=== PATIENT | female | born 1955 | race Caucasian/White ===

== ENCOUNTER → 2018-12-07 | Outpatient (CLI) | payer OTHER ==
--- NOTE | 2018-12-09 10:06 | PATH ---
[facility] [place] [address] PATHOLOGY RPT PROCEDURE Name: NED RICO Room #: REG [facility].#: [id number] ������������������ Admission: 12/07/18 ������������������ Date of : 55 Discharge: Report #: [id number] Path Case #: [id number] [facility] Accession Number: [id number] . 01 Material submitted: . PART A: breast - RIGHT BREAST CENTRAL CALCIFICATIONS. Modifiers: right, central PART B: breast - RIGHT BREAST 3:00 2CM. Modifiers: right PART C: breast - RIGHT BREAST 3:00 6CM. Modifiers: right . 01 Clinical history: . Right breast calcifications and distortion/mass . 02 Diagnosis: A. Breast, central, stereotactic needle core biopsy: - PROLIFERATIVE FIBROCYSTIC CHANGES ASSOCIATED WITH COLUMNAR CELL HYPERPLASIA, ADENOSIS, AND FOCAL ATYPICAL LOBULAR HYPERPLASIA. - Negative for carcinoma in situ or invasive carcinoma. - Calcifications identified in association with proliferative fibrocystic changes including columnar cell change. . B. Breast, right, 3:00, 2 cm from nipple, needle core biopsy: - INVASIVE DUCTAL ADENOCARCINOMA, JOSE G GRADE I MEASURING 1.1 CM IN GREATEST DIMENSION IN A SINGLE CORE IN CONTIGUOUS LENGTH. - DUCTAL CARCINOMA IN SITU, CRIBRIFORM TYPE AND INTERMEDIATE NUCLEAR GRADE PRESENT IN THE BACKGROUND. - MICROCALCIFICATIONS PRESENT IN ASSOCIATION WITH INVASIVE CARCINOMA. . C. Breast, right breast 3:00, 6 cm from nipple, needle core biopsy: - INVASIVE LOBULAR CARCINOMA, JOSE G GRADE I MEASURING 0.3 CM (3 MM) IN GREATEST DIMENSION IN CONTIGUOUS LENGTH IN A SINGLE CORE. (IUV:kun; 12/08/2018) QMS/12/08/2018 . 02 Comment: Part B: Specimen type: Needle core biopsy Tumor site: Right Breast 3:00 2 cm Tumor quantitation: 1.1 cm Histologic type: Invasive Ductal Carcinoma Histologic grade: [place] Grade 1 Tubules, nuclei and mitoses: 2, 1 and 1 respectively LVSI: Not identified Microcalcifications: Present Markers: ER, [place], Her2/meghan and Ki-67 Block: [place]2 [place] [address] PATHOLOGY RPT PROCEDURE Name: NED RICO Room #: REG LISANDRO Metcalf#: [id number] ������������������ Admission: 12/07/18 ������������������ Date of : 55 Discharge: Report #: [id number] Path Case #: [id number] Part C: Specimen type: Needle core biopsy Tumor site: Right Breast 3:00 6 cm Tumor quantitation: 0.3 cm Histologic type: Invasive Lobular Carcinoma Histologic grade: [place] Grade 1 Tubules, nuclei and mitoses: 2, 1 and 1 respectively LVSI: Not identified Microcalcifications: Not identified Markers: ER, OK, Her2/meghan and Ki-67 Block: C3 A properly controlled ECadherin immunohistochemical stain is performed on block C1 and it shows no reactivity present supporting the diagnosis rendered. Internal controls reacted appropriately. (IUV: 12/08/2018) . Co-review: Search Engineer slides were co-reviewed by Dr. Angeles Sharma. . Findings of this case are telephoned to Ms. Abarca in our breast center at 11:30 a.m. on 12/08/2018. . 02 Electronically signed: . Fabiola Andres MD, Pathologist NPI- [id number] . 01 Gross description: . A. The specimen is received in formalin, labeled "Ned Rico". No source is listed on the container. The source is listed on the requisition as, "right central". Received are multiple needle cores of fibrofatty tissue measuring 3.4 x 3.2 x 0.6 and meters in aggregate dimensions. Also received within the specimen container is a plastic cassette containing a single needle core of fibrofatty tissue measuring 3.2 cm in length by 0.5 cm in diameter. The suspect tissue is transferred cassette A1. Remaining tissue submitted in cassettes A2 and A3. The cold ischemic time is 5 minutes. The total formalin fixation time is 12 hours. . B. The specimen is received in formalin, labeled "Ned Rico, right breast 3:00 2 cm". Received are multiple needle cores of fibrofatty tissue measuring 3.4 x 2.8 x 0.7 cm in aggregate dimensions. The specimen is submitted entirely in cassettes B1 through B3. The cold ischemic time is 5 minutes. The total formalin fixation time is 11 hours. . C. The specimen is received in formalin, labeled "Ned Rico, right breast 3:00 6 cm". Received are multiple needle cores of fibrofatty tissue measuring 3.2 x 2.6 x 0.4 cm in aggregate dimensions. The specimen is submitted entirely in cassettes C1 through C3. The cold ischemic time is 5 minutes. The total formalin fixation time is 11 hours. [facility] [address] [place] [address] PATHOLOGY RPT PROCEDURE Name: NED RICO Room #: REG [facility]..#: [id number] ������������������ Admission: 12/07/18 ������������������ Date of : 55 Discharge: Report #: [id number] Path Case #: [id number] (CAA; 12/07/2018) QAC/QAC . 02 Pathologist provided ICD-10: C50.911, D05.11, N60.11, N60.21, N60.92 . 02 CPT . 352175, 008439, 441886, Z11432 Specimen Comment: A courtesy copy of this report has been sent to Specimen Comment: [phone], . Specimen Comment: Report sent to / DR HARRINGTON Performed at: 01 [facility] [address], [place], [place] [id number] MD Gideon Frecnh MD Phone: [phone] Performed at: [address] [facility] [address] [id number] MD Fabiola Andres MD Phone: [phone]
== END | disposition home or self-care (01) ==
LOC: RADSTEREO 01:53 → ULTRA 01:53 → RAD 12-10 09:29 → RADSTEREO 12-10 10:25
DX: C50.911 Malignant neoplasm of unspecified site of right female breast (principal); N60.11 Diffuse cystic mastopathy of right breast; N60.21 Fibroadenosis of right breast; N60.92 Unspecified benign mammary dysplasia of left breast

== ENCOUNTER → 2018-12-16 | Outpatient (CLI) | payer OTHER | LOC: MRI 09:29 | DX: C50.911 Malignant neoplasm of unspecified site of right female breast (principal); N63.20 Unspecified lump in the left breast, unspecified quadrant ==

== ENCOUNTER → 2019-01-13 | Outpatient (CLI) | payer OTHER ==
--- NOTE | 2019-01-14 16:06 | PATH ---
[facility] [place] [address] PATHOLOGY RPT PROCEDURE Name: NED RICO Room #: REG [facility].#: [id number] ������������������ Admission: 01/13/19 ������������������ Date of : 55 Discharge: Report #: [id number] Path Case #: [id number] [facility] Accession Number: [id number] . 01 Material submitted: . PART A: breast - RIGHT BREAST, 1:00, 2CMFN. Modifiers: right, 1:00 PART B: breast - RIGHT BREAST, 5:00, 3CMFN. Modifiers: right, 5:00 . 01 Clinical history: . Right breast mass, Hx right breast cancer (2 types) 12/17/18 . 02 Diagnosis: A. Breast, right breast 1:00, 2 cm from nipple, needle core biopsy: - Fibrocystic changes with dilated ducts, stromal fibrosis, as well as apocrine metaplasia. - Negative for hyperplasia, atypia or malignancy. . B. Breast, right breast 5:00, 3 cm from nipple, needle core biopsy: - INVASIVE WELL-DIFFERENTIATED DUCTAL ADENOCARCINOMA, NOTTINGHAMG GRADE 1 MEASURING 3 MM IN GREATEST DIMENSION IN SINGLE CORE IN CONTIGUOUS LENGTH. . (IUV:map maker; 01/14/2019) MBR/01/14/2019 . 02 Comment: Specimen type: Needle core biopsies Tumor site: Right breast 5:00, 3 cm from nipple Tumor quantitation: 3 mm Histologic type: Invasive, well-differentiated ductal adenocarcinoma (invasive tubular carcinoma) Histologic grade: Grade I Tubules, nuclei and mitoses: 3, 1 and 1 respectively LVSI: Not identified Microcalcifications: Not identified Markers: ER, [place], Ki67 and HER2/meghan Block: B2 . It is noted that the most recent biopsy is right breast 3:00, 2 cm from nipple showed an invasive ductal carcinoma, the right breast 3:00 cm from nipple showed an invasive lobular carcinoma. Despite the previous biopsy results, the markers are ordered on the right breast 5:00 3 cm from nipple in order for prognostication. . Dr. Shanae Ross has seen plastic products sales representative slides of part A and part B. . Findings of this case are telephoned to Elle in [place] [address] PATHOLOGY RPT PROCEDURE Name: NED RICO Room #: REG [facility]..#: [id number] ������������������ Admission: 01/13/19 ������������������ Date of : 55 Discharge: Report #: [id number] Path Case #: [id number] 1 p.m. on 01/14/19. . (IUV:map maker; 01/14/2019) . 02 Electronically signed: . Fabiola Andres MD, Pathologist NPI- [id number] . 01 Gross description: . A. Received in formalin labeled "Ned Rico, right breast 1:00 2 cm FN," are multiple needle cores of yellow-devries fibrofatty tissue measuring 3.1 x 2.1 x 0.6 cm in aggregate dimensions. The tissue is submitted in its entirety in cassette A1 through A3. The cold ischemic time is unknown. The total formalin fixation time is greater than 7 hours and less than 72 hours. . B. Received in formalin labeled "Ned Rico, right breast 5:00 3 cm FN," are multiple needle cores of yellow-devries fibrofatty tissue measuring 3.4 x 1.3 x 0.5 cm in aggregate dimensions. The tissue is submitted in its entirety in cassette B1 through B3. The cold ischemic time is unknown. The total formalin fixation time is greater than 7 hours and less than 72 hours. (TSD; 01/13/2019) TOB/TOB . 02 Pathologist provided ICD-10: N60.11, N60.31, N60.81, C50.911 . 02 CPT . 026510, 280031 Specimen Comment: A courtesy copy of this report has been sent to Specimen Comment: [phone], , . Specimen Comment: Report sent to ,DR SANTILLAN / DR HARRINGTON Performed at: [address], [place], [place] [id number] MD Gideon French MD Phone: [phone] Performed at: [address] [id number] MD Fabiola Andres MD Phone: [phone]
== END ==
LOC: ULTRA 11:17
DX: C50.011 Malignant neoplasm of nipple and areola, right female breast (principal); N60.31 Fibrosclerosis of right breast; N60.81 Other benign mammary dysplasias of right breast; R92.0 Mammographic microcalcification found on diagnostic imaging of breast

== ENCOUNTER 2019-09-07 10:27 | Day surgery (SDC) | payer OTHER ==
[~2019-09-07] VITALS: Ht 167.6 cm; Wt 100.2 kg
--- NOTE | ~2019-09-07 | O ---
[facility] [place] [address] OPERATIVE REPORT Name: KENNA RICO Room #: 150-6 [facility]#: [id number] Admission: 09/07/19 Attend Phys: Juanito Delgado MD Discharge: Date of : 55 Report #: [id number] THIS REPORT FOR: cc: Hannah Ching MD,Hannah Delgado,Juanito Bateman MD ~ CC: Juanito Ching DATE OF SERVICE: 09/07/2019 PREOPERATIVE DIAGNOSES: 1. History of malignancy, right breast. 2. Acquired absence, right breast. 3. Asymmetry of breast following mastectomy. 4. Ptosis, left breast. POSTOPERATIVE DIAGNOSES: 1. History of malignancy, right breast. 2. Acquired absence, right breast. 3. Asymmetry of breast following mastectomy. 4. Ptosis, left breast. PROCEDURES: 1. Right breast tissue radio tester reconstruction using AlloDerm regenerative tissue matrix and a [place] [employer] ultra high profile implant radio tester, catalog number [id number]. 2. Use of AlloDerm regenerative tissue matrix of the right breast reconstruction. 3. Right breast mastopexy/reduction procedure, left breast. 4. Skin excision, multiple redundancies, right breast, following mastectomy. SURGEON: Juanito Delgado MD ANESTHESIA: General. ESTIMATED BLOOD LOSS: 100 mL. COMPLICATIONS: None. Needle, sponge, instrument counts correct. TOTAL DRAINS: Three. INDICATIONS FOR PROCEDURE: The patient is a 64-year-old female who presents following previous mastectomy in the past, presents now for breast [facility] [address] [place] [address] OPERATIVE REPORT Name: KENNA RICO Room #: 150-6 [facility] M.R.#: [id number] Admission: 09/07/19 Attend Phys: Juanito Delgado MD Discharge: Date of : 55 Report #: [id number] reconstruction, right, and correction of the asymmetry of the left breast. She understands the risks and complications including bleeding, infection, scarring, possible skin loss, nipple loss, open wound complications, and need for further surgery. DESCRIPTION OF PROCEDURE: The patient taken to the operating room under general. The anterior chest was prepped and draped. Markings were initially done in the holding area and then completed in the operating room under general. All areas of anticipated treatment were infiltrated with local, prepped and draped. The procedure was begun with the left breast mastopexy. The outline of the incisions was then completed and the medial, lateral and superior wedges were then serially excised. Hemostasis used with cautery was carried out throughout the procedure. Wounds were closed then with the inferior pedicle technique utilized. Closure was with 3-0 Monocryl and Insorb skin preet all around. This completed on the left. Multiple [place] drains were placed for drainage. The procedure was then turned to the right side at which time significant skin redundancies left from previous surgery were then excised both medially and laterally for probably around 10-15 cm in length medial and lateral combined. At this time, the subpectoral pocket was designed and dissected in the routine fashion on the right. The AlloDerm regenerative tissue matrix was applied to the leading edge of the pectoralis muscle with a running 2-0 Vicryl suture. The radio tester was inserted taking great care to avoid any contact between the radio tester and the external skin. Pockets were copiously irrigated throughout the procedure. Slurry Tank Operator was placed and secured by all 3 posterior tabs. AlloDerm was secured inferiorly. A 19-Sloven[place] Crescencio drain was brought out for drainage lateral and the OnQ pain pump catheter system inserted, 2 catheters on the right side for pain control postoperatively. The wounds of the medial and lateral breast were closed prior to the insertion of the radio tester and dissection and these were closed with Insorb skin preet and 3-0 Monocryl as before. All dressings in place. Drains placed to their appropriate bulb suction. The patient tolerated the procedure well and was taken to the recovery room in stable condition to be discharged home with written and verbal instruction for apparent followup and prescriptions at home. She is to call in the meantime if there are any problems at all. By: 0904 0921 Juanito Delgado MD /moni
[~2019-09-07 10:27] MED LIST: BUPROPION XL150 MG PO; CALCIUM500 MG PO; EXEMESTANE25 MG PO; INDERAL 20 MG T20 M1 PO; MELOXICAM15 MG PO; MULTI VITAMIN1 EACH PO; PRAVACHOL 20 MG20 M1 PO
[2019-09-07 12:15] VITALS: BP 99/76
--- NOTE | 2019-09-08 08:19 | EKG ---
[facility] [place] [address] ELECTROCARDIOGRAM REPORT Name: KENNA RICO Room #: [address] [place] [address]#: [id number] Admission: 09/07/19 Attend Phys: Juanito Delgado MD Discharge: Date of : 55 Report #: [id number] THIS REPORT FOR: cc: Hannah Ching MD, Margaret A. MD Lundgren,Usama Joshua MD [facility] ~ THIS REPORT FOR: //name// [facility] Test Date: 2019-09-07 Test Time: 11:08:33 Pat Name: EKNNA RICO Department: Room: [facility] Gender: F Billing Department Supervisor: katya : 1955 Requested By: Juanito Delgado Order Number: [id number] MD: Usama Mg Measurements Intervals [place] Rate: 82 P: 73 SC: 161 QRS: -8 QRSD: 109 T: -14 QT: 362 QTc: 423 Interpretive Statements Sinus rhythm Nonspecific ST and T wave abnormality No previous ECG available for comparison Electronically Signed On 09-08-2019 8:18:41 LARD BLEACHER by Usama Mg [email or web address] <ELECTRONICALLY SIGNED> By: Usama Mg MD, FACC 09/08/19 0818 1108 1108 Usama Mg MD, [facility] /EPI
--- NOTE | 2019-09-13 16:07 | PATH ---
[facility] [place] [address] PATHOLOGY RPT PROCEDURE Name: KENNA RICO Room #: DEP [facility] [place] [place] M.R.#: [id number] Admission: 09/07/19 Date of : 55 Discharge: 09/07/19 Report #: [id number] Path Case #: [id number] [facility] Accession Number: [id number] . 01 Material submitted: . PART A: breast - LEFT BREAST TISSUE. Modifiers: left PART B: breast - RIGHT LATERAL BREAST TISSUE ADJACENT TO BREAST CANCER SITE. Modifiers: right, lateral . 01 Clinical history: . Acquired absence of right breast and nipple. Personal history of malignant neoplasm of breast. Disproportion of reconstructed breast . 02 Diagnosis: A. Breast, left breast tissue, breast reconstruction/mastopexy: - INVASIVE WELL-DIFFERENTIATED LOBULAR CARCINOMA, JOSE G GRADE I/III MEASURING 2 MM IN GREATEST DIMENSION IN A SINGLE FOCUS. - BACKGROUND OF EXTENSIVE LOBULAR CARCINOMA IN SITU. - Negative for lymphovascular space invasion. - Skin showing reactive changes; negative for malignancy. . B. Breast, right lateral breast tissue adjacent to breast cancer site, breast reconstruction/mastopexy: - Benign breast tissue associated with fibrocystic changes and repair, 119 grams. - Negative for atypia or malignancy. - Skin with reactive changes. . (IUV:steel post installer; 09/13/2019) . . Surgical Pathology Cancer Case Summary . Protocol posting date: July 2017 . INVASIVE CARCINOMA OF THE BREAST: . . Specimen Identification Procedure ___ Breast Reconstruction/ Mastopexy . Specimen Laterality ___ Left . Tumor Site: Invasive Carcinoma ___ Unknown . [address] [address] PATHOLOGY RPT PROCEDURE Name: JACKYPIERSON S Room #: DEP [facility].#: [id number] Admission: 09/07/19 Date of : 55 Discharge: 09/07/19 Report #: [id number] Path Case #: [id number] Tumor Size ___ 0.2 cm . Histologic Type ___ Invasive lobular carcinoma . Histologic Grade (Jose G Histologic Score) ___ Holmes Grade 1 Glandular (Acinar)/Tubular Differentiation ___ Score 3 (<10% of tumor area forming glandular/tubular structures) Nuclear Pleomorphism ___ Score 1 (nuclei small with little increase in size in comparison with normal breast epithelial cells, regular outlines, uniform nuclear chromatin, little variation in size) Mitotic Rate ___ Score 1 (=3 mitoses per mm2) . Tumor Focality ___ Single focus . Lobular Carcinoma In Situ (LCIS) ___ Identified . Tumor Extension Skin ___ None . Nipple ___ Not examined/ Not submitted . Margins . Invasive Carcinoma Margins ___ Cannot be assessed DCIS Margins ___ Cannot be assessed . Regional Lymph Nodes ___ Cannot be assessed . Treatment Effect ___ No known presurgical therapy . Lymphovascular Invasion ___ Not identified . Dermal Lymphovascular Invasion ___ Not identified [facility] [address] [place] [address] PATHOLOGY RPT PROCEDURE Name: KENNA RICO Room #: DEP [facility].#: [id number] Admission: 09/07/19 Date of : 55 Discharge: 09/07/19 Report #: [id number] Path Case #: [id number] . Pathologic Stage Classification (pTNM, AJCC 8th Edition) Note: Reporting of pT, pN, and (when applicable) pM categories is based on information available to the pathologist at the time the report is issued. . . Primary Tumor (Invasive Carcinoma) (pT) ___ pT1a: Tumor >1 mm but =5 mm in greatest dimension (round any measurement >1.0-1.9 mm to 2 mm) ___ pNX: Regional lymph nodes cannot be assessed (eg, not removed for pathological study or previously removed) MBR 09/13/2019 1150 Local . 02 Comment: Properly controlled immunohistochemical stains are performed on block A1 and included E-cadherin as well as ER. E-cadherin shows no reactivity within the lobular carcinoma in situ. ER shows over expression within the lobular carcinoma in situ supporting the findings. . Co-review: Dr. Luz Lynn and Dr. Uriel Goodman. . Findings of this case are telephoned to miss Bhatiahleen, Dr. Delgado's nurse, at 10:23 a.m. on 09/13/2019. . (IUV:steel post installer; 09/13/2019) . 02 Electronically signed: . Fabiola Andres MD, Pathologist NPI- [id number] . 01 Gross description: . A. The specimen is received in formalin, labeled "Kenna Rico, left breast tissue" and consists of 3 segments of yellow-orange fibroadipose tissue partially covered by unremarkable pink-sykes skin measuring 19.3 x 15.8 x 4.1 cm and weighing 448 g. Sectioning reveals approximately 5-10% dense fibrous tissue with scattered cystic structures and no masses or lesions. Manager Bilingual sections are submitted in A1-A2. . B. The specimen is received in formalin, labeled "Kenna Rico, right lateral breast tissue adjacent to breast cancer site" and consists of an unremarkable pink-sykes skin ellipse measuring 14.5 x 7.0 cm with underlying breast tissue excised to a depth of 2.5 cm (119 g). There is a 5.0 x 4.0 cm partial possible breast capsule attached to the deep aspect. Sectioning reveals minimal (less than 1% fibrous tissue) with no masses or lesions. Manager Bilingual sections are submitted in B1-B2. (SDY; 09/08/2019) . After initial microscopic examination additional operations representative sections [address] [address] PATHOLOGY RPT PROCEDURE Name: KENNA RICO Room #: [facility] M.R.#: [id number] Admission: 09/07/19 Date of : 55 Discharge: 09/07/19 Report #: [id number] Path Case #: [id number] are submitted in A3-A7. . After initial microscopic examination additional operations representative sections are submitted in B3-B5. (SDY; 09/09/2019) SYU/SYU 09/09/2019 1245 Local . 02 Pathologist provided ICD-10: C50.912, D05.12, N60.12 . 02 CPT . 539585, 172108, D50178, P72120 Specimen Comment: A courtesy copy of this report has been sent to [phone] Specimen Comment: [phone] Specimen Comment: Report sent to / DR SANTILLAN Performed at: [address] [facility], [place] [id number] MD Gideon French MD Phone: [phone] Performed at: [address] [facility] [id number] MD Fabiola Andres MD Phone: [phone]
== END 2019-09-07 17:50 | disposition home or self-care (01) ==
LOC: OR 10:27 → TBA 10:27 → OR 11:05
DX: N64.89 Other specified disorders of breast (principal); N64.81 Ptosis of breast; I10 Essential (primary) hypertension; E78.5 Hyperlipidemia, unspecified; F32.9 Major depressive disorder, single episode, unspecified; Z98.890 Other specified postprocedural states; Z85.3 Personal history of malignant neoplasm of breast; Z79.899 Other long term (current) drug therapy; Z90.11 Acquired absence of right breast and nipple; Z88.0 Allergy status to penicillin
CPT/HCPCS: 50010; 50101; 50386; 50648; 51061; 52188; 56524; 56525; 56526; 56527; 57091; 57108; 57146; 57151; 62110; 62900; 70005

== ENCOUNTER 2019-10-13 10:09 | Day surgery (SDC) | payer OTHER ==
[~2019-10-13] VITALS: Ht 167.6 cm; Wt 101.6 kg
--- NOTE | ~2019-10-13 | O ---
[facility] [place] [address] OPERATIVE REPORT Name: KENNA RICO Room #: DEP [facility]..#: [id number] Admission: 10/13/19 Attend Phys: Kartik Deleon MD Discharge: 10/14/19 Date of : 55 Report #: [id number] THIS REPORT FOR: cc: Hannah Ching MD,Juantio Negron MD, MD ~ CC: Juanito Ching DATE OF SERVICE: 10/13/2019 PREOPERATIVE DIAGNOSES: 1. History of bilateral breast cancer. 2. Acquired absence bilateral breasts. 3. Personal history of breast cancer, bilateral. PROCEDURE: 1. Left breast tissue synthetic filament spinner reconstruction using [employer]ra Ultra high profile tissue synthetic filament spinner catalog #[id number] inflated ultimately to 150 mL of saline. 2. The use of AlloDerm regenerative tissue matrix for the reconstruction of the left breast. 3. The use of the SPY Elite system for evaluation of mastectomy, breast skin flaps. SURGEON: Juanito Delgado MD ANESTHESIA: General. ESTIMATED BLOOD LOSS: Minimal. DRAINS: x 1. COMPLICATIONS: None. COUNTS: Needle, sponge, instrument counts correct. INDICATIONS FOR PROCEDURE: The patient is a 64-year-old white female who presents with a recent history of right breast reconstruction and left breast lift. Tissue from the breast lift showed the presence of malignancy. At which time now, she has returned, chosen to proceed with a mastectomy, left breast by Dr. Deleon and reconstruction by myself. She understands the risks and complications of my portion of the procedure including bleeding, infection, scarring, possible skin loss, open wound complications, need for further surgery. [address] [address] OPERATIVE REPORT Name: KENNA RICO Room #: DEP [facility].#: [id number] Admission: 10/13/19 Attend Phys: Kartik Deleon MD Discharge: 10/14/19 Date of : 55 Report #: [id number] DESCRIPTION OF PROCEDURE: The patient was taken to the operating room under general after marked in the holding area. Dr. Deleon began the procedure on the left. Upon his completion of this, I presented, at which time all devices prepared in advance. The intraoperative assessment at this point using the SPY Elite device of the left breast mastectomy skin flaps was first evaluated before beginning any portion of the procedure to follow. At this point, 3 mL of indocyanine green was instilled and then the handheld SPY Elite system was placed over the breast and showed excellent vascularity. At this time, the SPY Elite system was put to the side, at which time the subpectoral pocket was dissected in routine fashion, leading edge of the pectoralis muscle was attached to AlloDerm and tissue regenerative matrix at which time the tissue synthetic filament spinner was then inserted. Again, copious irrigations at each phase of this procedure and the synthetic filament spinner was secured by all three posterior tabs of the synthetic filament spinner. This accomplished, the coverage of the synthetic filament spinner was completed with the allergen AlloDerm regenerative tissue matrix applied with a running 2-0 Vicryl sutures. This accomplished, the pocket was copiously irrigated, which time skin flaps were tailored and closed with Insorb skin preet and 3-0 Monocryl running sutures. An interrupted 5-0 nylons and Steri-Strips later applied. At this point, with the 19-[place] Crescencio drain brought out just prior to completing wound closure as well as the On-Q pain pump catheter system inserted and applied, again another 3 mL of indocyanine green was injected into her IV and the [employer] Elite handheld system was applied over the skin, which noted again an excellent vascularity with no areas of considered a compromise whatsoever. At this time, occlusive bulky dressings were applied. The patient was taken to the recovery room in stable condition. She will be discharged fully alert to her overnight stay bed in the hospital. She already has a prescription at home for pain, nausea and antibiotics. She is instructed on limited activities at home and to follow up in the office upon departure from the hospital tomorrow. By: 1109 1148 Juanito Delgado MD /moni
--- NOTE | ~2019-10-13 | H ---
[facility] [place] [address] HISTORY AND PHYSICAL Name: KENNA RICO Room #: 150-4 [facility]#: [id number] Admission: 10/13/19 Attend Phys: Kartik Deleon MD Discharge: Date of : 55 Report #: [id number] THIS REPORT FOR: cc: Hannah Ching MD, Margaret A. MD McCroskey, Lon C. MD ~ CC: DEISI HARRINGTON MD DATE OF SERVICE: 10/13/2019 PREOPERATIVE DIAGNOSIS: Invasive lobular carcinoma, left breast, status post recent reduction surgery. POSTOPERATIVE DIAGNOSIS: Invasive lobular carcinoma, left breast, status post recent reduction surgery, final pathology pending. OPERATIONS: 1. Lymphatic mapping. 2. Left axillary sentinel lymph node resection x 2. 3. Left skin-sparing mastectomy. SURGEON: Kartik Deleon MD ANESTHESIA: General. DESCRIPTION OF PROCEDURE: The patient was taken to nuclear medicine and the radiologist injected technetium sulfur colloid into the left breast as per protocol. Lymphoscintigraphy demonstrated a hot spot in the left axilla, which was marked by the radiologist. They also saw some very faint activity on the right chest wall, which was not considered a true sentinel node since the patient has had a previous right mastectomy and right axillary lymph node dissection. The activity in the left axilla certainly seemed more significant as a sentinel node hot spot. The patient was brought to the operating room for a general anesthetic. Lymphatic mapping was performed using the gamma probe and we confirmed the presence of a left axillary hot spot with a 10-second count of 114. Next, 5 mL of methylene blue dye were injected into the left breast using sterile technique with alcohol prep. Next, the abdomen, the chest wall, the left breast and the left axilla were widely prepped with ChloraPrep solution. Sterile drapes were applied. Dr. Delgado and I had already discussed incision options. The patient had already undergone a recent reduction/[place] [address] HISTORY AND PHYSICAL Name: KENNA RICO Room #: 150-4 [facility]#: [id number] Admission: 10/13/19 Attend Phys: Kartik Deleon MD Discharge: Date of : 55 Report #: [id number] the left, at which time, breast tissue was removed and submitted to pathology. That showed invasive lobular carcinoma. The incision was a lollipop-type incision with the circular incision around the areola and then a vertical component and an inframammary component on both sides. Dr. Delgado and I felt that the nipple-areolar complex needed to be removed and I used a circular incision for that and a vertical incision utilizing the old scar. The skin flaps were developed using electrocautery. The breast was dissected off of the chest wall from medial to lateral in order to improve the exposure in the axilla. The axilla was entered with care being taken to avoid injury to the neurovascular structures. We found 2 sentinel nodes, which were each excised, controlling the blood and lymphatic supply using Harmonic scalpel. [place] node #1 had a 10-second count of 501, it was blue. [place] node #2 had a 10-second count of 320, it was blue. Both were submitted to pathology. Next, the axilla was further interrogated and we found no other hot spots or blue nodes. Palpation revealed no other suspicious nodes. Next, the left mastectomy was completed, removing the entire breast together with the nipple-areolar complex and the tail of Alvarez and the pectoralis fascia. The specimen was marked with sutures for orientation purposes and then was submitted directly to pathology. Palpation of the axilla revealed nothing suspicious. Hemostasis was carefully obtained. The wound was irrigated with Dr. Delgado's antibiotic solution. Hemostasis was again checked and was found to be excellent. The sponge, instrument and needle counts were reported as correct. The skin flaps appeared excellent. At this point, I scrubbed out and then Dr. Delgado proceeded with his reconstruction, which will be dictated separately by him. Estimated blood loss for the mastectomy portion of the operation was less than 20 mL. It should be noted that the post-resection bed count in the axilla was 0, which was well below 10% of the ____. By: 1508 1534 Kartik Deleon MD /nt
[2019-10-13 10:46] LABS: HEMATOCRIT 40.8 % (37.0-47.0); HEMOGLOBIN 13.5 gm/dL (12.0-15.0); MCH 30.1 pg (26.0-34.0); MCHC 33.1 g/dL (28.0-37.0); RBC 4.48 mil/uL (4.20-5.00); RDW 13.2 % (10.5-14.5); WBC 5.2 thou/uL (4.0-11.0)
[2019-10-13 11:03] LABS: CALCIUM 9.6 mg/dL (8.5-10.1); CREATININE 1.1 mg/dL (0.6-1.0); POTASSIUM 4.2 mmol/L (3.5-5.1)
[2019-10-13 11:08] LABS: TOTAL BILIRUBIN 0.4 mg/dL (<0.1-1.0); TOTAL PROTEIN 7.5 g/dL (6.4-8.2)
[2019-10-13 12:10] VITALS: BP 136/82
[2019-10-13 18:58] VITALS: BP 156/73
[2019-10-13 19:35] VITALS: BP 164/72
--- NOTE | 2019-10-13 19:51 | NUR ---
ASSUMED CARE OF PATIENT APPROX 1730. PT A&OX4, VSS, PAIN IN LEFT BREAST AT 2. PATIENT HAS BILAT AMADO HOSE AND SCD ON LEFT LEG. VITALS TAKEN ON RIGHT LEG D/T LIMB ALERTS ON BILAT ARMS. NO SIGNS OF DISTRESS. WILL CONTINUE TO MONITOR.
[2019-10-14 03:20] VITALS: BP 149/66
[2019-10-14 07:14] VITALS: BP 153/57
--- NOTE | 2019-10-14 15:07 | NUR ---
ASSUMED CARE OF PATIENT AT 0715, PATIENT ALERT AND ORIENTED X 4. UP WITH SBA TO BATHROOM. PATIENT C/O PAIN WITH LEFT BREAST AREA, DRESSING IN PLACE, C/D/I. MISAEL DRAIN IN PLACE, EMPTIED 100CC PRIOR TO DISCHARGE. PATIENT GIVEN HYDROCODONE 1 TABLET THIS SHIFT, WITH PARTIAL RELIEF. DR MANTILLA HERE THIS AM, VERBAL ORDER RECEIVED FOR DISCHARGE, BUT HE DID NOT COMPLETE THE DISCHARGE IN [facility]. THIS RN NOTIFED NOTIFIED DR MANTILLA OF NOT COMPLETING THE DISCHARGE, HE STATES HE WILL DO IT LATER WHEN HE COMES BACK TO THE HOSPITAL. PATIENT UNABLE TO DISCHARGE UNTIL DISCHARGE COMPLETED. RADHA SUP. NOTIFIED/STEVEN. DR ESPINOZA NOTIFIED BY THE PATIENT, HE WILL DO PAPER DISCHARGE, STEVEN/RADHA SUP. PRINTED PAPER DISCHARGE AND FAXED TO DR ESPINOZA. RECEIVED DISCHARGE PAPERWORK AND COPY GIVEN TO THE PATIENT AND COPY PUT IN THE CHART. RIGHT HAND IV REMOVED AND PATIENT DISCHARGED TO HOME, VIA HER HERE TO TRANSPORT HOME. PATIENT WILL F/U WITH DR ESPINOZA UPON DISCHARGE.
--- NOTE | 2019-10-17 15:07 | PATH ---
[facility] [address] [place] [address] PATHOLOGY RPT PROCEDURE Name: KENNA RICO Room #: DEP [facility]..#: [id number] Admission: 10/13/19 Date of : 55 Discharge: 10/14/19 Report #: [id number] Path Case #: [id number] [facility] Accession Number: [id number] . 01 Material submitted: . PART A: lymph node - LEFT AXILLARY SENTINEL LYMPH NODE 1. Modifiers: left, axillary tail PART B: lymph node - LEFT AXILLARY SENTINEL LYMPH NODE 2. Modifiers: left, axillary tail PART C: breast - LEFT SKIN SPARING MASTECTOMY. Modifiers: left . 01 Clinical history: . Carcinoma left breast, recent breast reduction . 02 Diagnosis: A. Lymph node (1), left axillary sentinel lymph node #1, biopsy: - Reactive lymph node without isolated tumor cells, or micrometastases or macrometastases (0/1). . B. Lymph node (1), left axillary sentinel lymph node #2, biopsy: - Reactive lymph node without isolated tumor cells, or micrometastases or macrometastases (0/1). . C. Breast, left breast, skin sparing mastectomy: - LOBULAR CARCINOMA IN SITU IDENTIFIED WITHIN THE LOWER QUADRANT. - Giant cell reaction as well as extensive reparative changes identified along the biopsy cavity; s/p mastopexy. - No residual invasive lobular carcinoma present (please see synoptic report assembled). - Margins of resection free of malignancy; approximately 1 mm between the giant cell reaction (reparative changes) as well as posterior margin. - Skin and nipple showing reactive changes; atypical lobular hyperplasia identified within nipple ducts. . (IUV:field manager; 10/17/2019) . . Surgical Pathology Cancer Case Summary . Protocol posting date: July 2017 . INVASIVE CARCINOMA OF THE BREAST: . . Specimen Identification Procedure ___ Skin-sparing mastectomy . [address] [address] PATHOLOGY RPT PROCEDURE Name: JACKYKENNA Room #: DEP [facility].#: [id number] Admission: 10/13/19 Date of : 55 Discharge: 10/14/19 Report #: [id number] Path Case #: [id number] Specimen Laterality ___ Left . Tumor Site: Invasive Carcinoma ___ Unknown (identified in the mastopexy specimen) . Tumor Size ___ 0.2 cm . Histologic Type ___ Invasive lobular carcinoma ([phone]; please refer to a separate report) . Histologic Grade (Jamel Histologic Score) ___ [place] Grade 1 Glandular (Acinar)/Tubular Differentiation ___ Score 3 (<10% of tumor area forming glandular/tubular structures) Nuclear Pleomorphism ___ Score 1 (nuclei small with little increase in size in comparison with normal breast epithelial cells, regular outlines, uniform nuclear chromatin, little variation in size) Mitotic Rate ___ Score 1 (=3 mitoses per mm2) . Tumor Focality ___ Single focus . Lobular Carcinoma In Situ (LCIS) ___ Identified . Tumor Extension Skin ___ None . Nipple ___ None . Margins . Invasive Carcinoma Margins ___ Uninvolved by invasive carcinoma; reparative changes present within 1 mm from the posterior margin . Regional Lymph Nodes ___ Uninvolved by tumor cells Number of Lymph Nodes Examined: 2 Number of [place] Nodes Examined: 2 . [facility] [address] [place] [address] PATHOLOGY RPT PROCEDURE Name: KENNA RICO Room #: DEP [facility]#: [id number] Admission: 10/13/19 Date of : 55 Discharge: 10/14/19 Report #: [id number] Path Case #: [id number] Treatment Effect ___ No known presurgical therapy . Lymphovascular Invasion ___ Not identified . Dermal Lymphovascular Invasion ___ Not identified . Pathologic Stage Classification (pTNM, AJCC 8th Edition) Note: Reporting of pT, pN, and (when applicable) pM categories is based on information available to the pathologist at the time the report is issued. . . Primary Tumor (Invasive Carcinoma) (pT) ___ pT1a: Tumor >1 mm but =5 mm in greatest dimension (round any measurement >1.0-1.9 mm to 2 mm) Category (pN) (sn) ___ pN0: No regional lymph node metastasis identified [facility] 10/17/2019 1430 Local . 02 Comment: The most recent left breast mastopexy specimen ([id number]) showed an invasive lobular carcinoma measuring 2 mm in greatest dimension. There is no residual invasive carcinoma identified within the current specimen. Extensive reparative changes consistent with the previous resection are identified in the current specimen. The giant cell reaction extends to within 1 mm from the posterior/deep margin. The margins; however, are considered negative due to the fact that there is no residual invasive carcinoma within the current one. Please refer to a separate report ([id number]) for complete details. . Immunohistochemical stains are performed and interpreted as follows: . AE1/AE3 on block A1 - negative for isolated tumor cells, micrometastases or macrometastases. . AE1/AE3 on block B1 - negative for isolated tumor cells, micrometastases or macrometastases. . (IUV:field manager; 10/17/2019) . 02 Electronically signed: . Fabiola Andres MD, Pathologist NPI- [id number] . 01 Gross description: . [facility] [address] [place] [address] PATHOLOGY RPT PROCEDURE Name: KENNA RICO [id number] Admission: 10/13/19 Date of : 55 Discharge: 10/14/19 Report #: [id number] Path Case #: [id number] A. The specimen is received in formalin, labeled "Kenna Rico, left axillary sentinel lymph node #1, blue, count 501". Received is a segment of yellow-sykes lobulated tissue measuring 2.0 x 1.5 x 1.1 cm in greatest dimensions. Dissection and palpation of the specimen reveals a single lymph node measuring 1.6 cm in maximum dimensions. The lymph node is bisected and entirely submitted in cassette A1. Immunohistochemical stains are ordered. . B. The specimen is received in formalin, labeled "Kenna Rico, left axillary sentinel lymph node #2, blue, count 320". Received is a segment of yellow-sykes lobulated tissue measuring 2.6 x 1.4 x 1.0 cm in greatest dimensions. Dissection and palpation of the specimen reveals a single lymph node measuring 1.0 cm in maximum dimensions. The lymph node is bisected and entirely submitted in cassette B1. Immunohistochemical stains are ordered. . C. The specimen is received in formalin, labeled "Kenna Rico, left skin-sparing mastectomy, long suture tail of Alvarez". Received is an 857.7 g skin-sparing mastectomy specimen with a suture designating the tail of Alvarez. The specimen measures 21.3 cm from medial to lateral, 15.0 cm from superior to inferior, and 6.0 cm from anterior to posterior. On the anterior aspect of the specimen, there is an irregular excision of skin measuring 4.5 x 3.3 cm with an everted nipple measuring 1.5 x 1.5 cm and areolar complex measuring 3.3 x 3.2 cm. On the posterior aspect of the specimen in the lower inner quadrant, there is a cavity present with evidence of underlying fat necrosis 3.1 x 1.5 cm. The specimen is inked as follows: Superior/anterior-blue, inferior/anterior-green, posterior-black. The specimen is sectioned from medial to lateral aspects to reveal a possible previous biopsy site in the upper inner quadrant, which is hemorrhagic in appearance and has a slight amount of fat necrosis identified, measuring 0.7 x 0.6 x 0.5 cm, which is 0.5 cm from the closest margin (superior/anterior). 0.8 cm inferior to the previous biopsy site, and extending up to 14.8 cm lateral, there are multiple yellow-sykes foci of comedo-type lesions and possible fat necrosis, which is identified within all four quadrants. Several of these lesions grossly approach the posterior and inferior margins. From the aforementioned cavity on the posterior aspect, there is a line of comedo-type lesions extending along a line/duct superior from the cavity to 5.3 cm in greatest length into the upper inner quadrant. Along the inferior margin in the lower outer quadrant, a white fibrous, cystic mass is identified measuring 1.2 x 1.0 x 0.6 cm which grossly approaches the inferior margin. The remainder of the specimen displays bright yellow fibrofatty cut surfaces, with the fibrous tissue encompassing approximately 25% of the specimen. The specimen is submitted representatively as follows: . C1 perpendicular section through nipple C2-C4 entire possible previous biopsy site in the upper inner quadrant submitted from medial to lateral aspects [address] [address] PATHOLOGY RPT PROCEDURE Name: KENNA RICO Room #: DEP [facility] [place]#: [id number] Admission: 10/13/19 Date of : 55 Discharge: 10/14/19 Report #: [id number] Path Case #: [id number] C5-C7 sales representative printing sections of cavity from the posterior aspect of the lower inner quadrant C8-C11 sales representative printing section taken from the aforementioned cavity aspect extending superior to encompass the line of comedo-type lesions identified (see attached photographs) C12-C17 sales representative printing sections taken of comedo lesions extending from previous biopsy site to the most lateral aspect within the lower inner quadrant C18-C21 entire fibrous cystic mass in lower outer quadrant along inferior margin C22-C23 upper inner quadrant C24-C25 lower inner quadrant C26-C27 lower outer quadrant C28-C29 upper outer quadrant. . The cold ischemic time is 9 minutes. The total formalin fixation time is 30 hours and 53 minutes. Gross photograph are taken. (CAA; 10/14/2019) QAC/QAC 10/14/2019 1202 Local . 02 Pathologist provided ICD-10: D05.02, N62 . 02 CPT . 448480, 402975, 606157, Z47441 Specimen Comment: A courtesy copy of this report has been sent to [phone], [phone] Specimen Comment: [phone], Specimen Comment: Report sent to ,DR ESPINOZA / DR SANTILLAN Performed at: [address] [facility], [place], [place] [id number] MD Gideon French MD Phone: [phone] Performed at: [address] [facility] [id number] MD Fabiola Andres MD Phone: [phone]
== END 2019-10-14 15:53 | disposition home or self-care (01) ==
LOC: OR 10:09 → TBA 10:13 → OR 14:05 → 4S 18:42 → ENTRNSPT 10-14 14:44 → OR 10-14 15:53
PROVIDERS: Student in an Organized Health Care Education/Training Program
DX: C50.912 Malignant neoplasm of unspecified site of left female breast (principal)
CPT/HCPCS: 50010; 50101; 50386; 50403; 50648; 51061; 52188; 52190; 53040; 56524; 56525; 56526; 56527; 56528; 57146; 57151; 57157; 62110; 62850; 70005

== ENCOUNTER 2021-06-07 11:41 | Day surgery (SDC) | payer OTHER ==
[~2021-06-07] VITALS: Ht 167.6 cm; Wt 93.0 kg
--- NOTE | ~2021-06-07 | O ---
[facility] [place] [address] OPERATIVE REPORT Name: KENNA RICO Room #: DEP [facility].#: [id number] Admission: 06/07/21 Attend Phys: Juanito Delgado MD Discharge: 06/07/21 Date of : 55 Report #: [id number] THIS REPORT FOR: cc: Hannah Ching MD, Margaret A. MD Quinn,Juanito Bateman MD ~ PREOPERATIVE DIAGNOSES: 1. History of malignancy, bilateral breasts. 2. Acquired absence, bilateral breasts. 3. Deformity, left breast with capsular deformation. POSTOPERATIVE DIAGNOSES: 1. History of malignancy, bilateral breasts. 2. Acquired absence, bilateral breasts. 3. Deformity, left breast with capsular deformation. PROCEDURES: Removal of bilateral tissue expanders and replacement using [place] MemoryGel; smooth high profile Xtra breast implants, catalog #[id number], each containing 790 mL of gel silicone as per patient's preferred request. SURGEON: Juanito Delgado MD ANESTHESIA: General. ESTIMATED BLOOD LOSS: Minimal. DRAINS: None. COMPLICATIONS: None. COUNTS: Needle, sponge, instrument counts correct. INDICATIONS FOR PROCEDURE: The patient is a 65-year-old white female who presents following previous mastectomy with reconstruction. She presents now with a subsequent capsular deformity causing malposition and deformity of the left breast. She presents now for correction of all these and replacement of language translator with gel silicone implants, Xtra high profile. She understands the risks and complications including bleeding, infection, scarring, persistent deformity requiring further revision, possible need for further surgery. DESCRIPTION OF PROCEDURE: The patient was marked in the holding area in the operating room. The anterior chest was prepped and draped. The inframammary incisions were outlined, infiltrated with local and then the incision was created. The language translator was identified. A limited volume was still present within the language translator, which was removed and disposed. Pocket was copiously [address] [address] OPERATIVE REPORT Name: SORAYA RICON Mirza Room #: DEP [facility]#: [id number] Admission: 06/07/21 Attend Phys: Juanito Delgado MD Discharge: 06/07/21 Date of : 55 Report #: [id number] irrigated. The sizer implant as expected was 790 mL. It fit the pocket well and wound closure was easily affected. On the left side, the same procedure was carried out except on this side, the volume was extracted prior to removal of the language translator and noted to be as expected from the preoperative notes and volume replacements. The language translator removed and disposed ____ sizer implant was inserted, deformity persisted in the left lateral breast, at which time the sizer was removed. The open capsulotomy carried out in this area. Hemostasis was excellent. The sizer reinserted. Correction of that deformity previously noted was accomplished and also the pocket lowered by about 2-3 cm in the upper pole just with replacement of the language translator in this open capsulotomy. At this time, the sizer was removed. The pocket was copiously irrigated. Sizer was inserted, looked good. Sizer removed and irrigated. The pocket, the permanent implants were then inserted with the funnel no-touch technique and closed with running 3-0 Monocryl, interrupted 3-0 Monocryl of second layer and third layer with 3-0 Monocryl running, interrupted 5-0 nylon. Steri-Strips applied. Occlusive bulky dressing and Vel wrap applied. The patient tolerated the procedure well and was taken to the recovery room in stable condition to be discharged and fully alert with prescriptions for pain, nausea and antibiotics at home. Written and verbal instruction care, followup and to see me in the office as instructed. She is to call if there are any problems at all. By: 0725 0746 Juanito Delgado MD /nt
[~2021-06-07 11:41] MED LIST changes: +BUPROPION HCL150 M1 PO; -BUPROPION XL150 MG PO; +GABAPENTIN100 MG PO
[2021-06-07 12:23] LABS: HEMATOCRIT 41.5 % (37.0-47.0); HEMOGLOBIN 13.8 gm/dL (12.0-15.0)
[2021-06-07 12:55] VITALS: BP 126/63
--- NOTE | 2021-06-08 12:44 | EKG ---
[address] [address] ELECTROCARDIOGRAM REPORT Name: SORAYA RICON Mirza Room #: 150-4 [facility]#: [id number] Admission: 06/07/21 Attend Phys: Juanito Delgado MD Discharge: Date of : 55 Report #: [id number] [facility] Test Date: 2021-06-07 Test Time: 12:44:49 Pat Name: KENNA RICO Department: Room: Gender: F Internship Coordinator: REGINO : 1955 Requested By: Juanito Delgado Order Number: [id number] MD: Nabor Basurto Measurements Intervals [place] Rate: 78 P: 61 [place]: 165 QRS: -13 QRSD: 82 T: -13 QT: 442 QTc: 504 Interpretive Statements Sinus rhythm Probable left atrial enlargement Borderline abnrm T, anterolateral leads Prolonged QT interval Compared to ECG 09/07/2019 11:08:33 Prolonged QT interval now present ST (T wave) deviation no longer present Electronically Signed On 06-08-2021 12:44:15 [employer]ODUCT SUPPORT CONSULTANT by Nabor Basurto [email or web address] <ELECTRONICALLY SIGNED> By: Nabor Basurto MD 06/08/21 1244 1244 1244 Nabor Basurto MD /EPI
== END 2021-06-07 17:15 | disposition home or self-care (01) ==
LOC: OR 11:41 → TBA 11:45 → OR 14:58
PROVIDERS: ATTEND Specialist
DX: N64.89 Other specified disorders of breast (principal); Z90.13 Acquired absence of bilateral breasts and nipples; I10 Essential (primary) hypertension; E78.5 Hyperlipidemia, unspecified; F41.9 Anxiety disorder, unspecified; Z85.3 Personal history of malignant neoplasm of breast; Z98.890 Other specified postprocedural states; Z20.822 Contact with and (suspected) exposure to COVID-19; Z90.49 Acquired absence of other specified parts of digestive tract; Z79.899 Other long term (current) drug therapy; Z88.8 Allergy status to other drugs, medicaments and biological substances; Z88.0 Allergy status to penicillin
CPT/HCPCS: 50010; 50101; 50386; 50403; 56525; 56526; 56527; 58695; 62110; 62900; 64037; 70005